=== PATIENT | male | born 1975 | race Caucasian/White ===

== ENCOUNTER → 2017-03-16 | Outpatient (CLI) | payer OTHER ==
[~2017-03-16] VITALS: Ht 185.4 cm; Wt 94.3 kg
[~2017-03-16] MED LIST: ALEVE220 MG PO; FLONASE 0.05%50 MCG NASAL; LOPERAMIDE 2 MG2 M1 PO; VITAMIN D1000 UNI1 PO; XYZAL5 MG PO
--- NOTE | ~2017-03-16 | HPC ---
[facility] [place] [address] PAIN MANAGEMENT CONSULTATION Name: NELSON CORDERO [id number] Admission: 03/16/17 Attend Phys: Keenan Carrasco DO Discharge: Date of : 79 Report #: [id number] THIS REPORT FOR: //name// CC: Keenan Giron MD DATE OF SERVICE: 03/16/2017 DATE OF SERVICE: 03/16/2017 CHIEF COMPLAINT: Axial back pain. HISTORY OF PRESENT ILLNESS: As you know, the patient is a 41-year-old male, who has reported longstanding history of axial back pain issues. The patient states his pain began in 2004. He denies injury or trauma that may have led to symptom development and progression. He has been evaluated at [facility]. He has undergone intra-articular facet injections which provided about 60% improvement in overall pain lasting for about a week. He was planning to return to undergo the next in a series of intra-articular facet injections, but was advised to transfer his care to [facility] where he is able to receive a discount on his treatment options. He referred himself to our clinic for evaluation. He states his pain today is steady and periodic, describes the pain as shooting, aching and stabbing, places current pain score 2-3/10, daily average at 6/10, worst the pain has been is 9/10. The patient states that activities and bending over exacerbates symptoms, lying down tends to improve pain. He has been referred to pain management for chronic axial back pain. PAST MEDICAL HISTORY: 1. Chronic low back pain. 2. Gastroesophageal reflux disease. 3. Hyperlipidemia. PAST SURGICAL HISTORY: 1. Rotator cuff repair on the right. 2. Rotator cuff repair, left. 3. Lipoma resection. SOCIAL HISTORY: The patient is a reformed smoker. He has 98-lmdu-byhb history of smoking. He denies IV or illicit drug use. Denies any chronic alcohol use. He is employed as a registered nurse. He is working, not receiving workmen's compensation nor is trying to obtain disability benefits. He is unaccompanied at today's visit. REVIEW OF SYSTEMS: Positive for chronic sinus with rhinitis, low back pain, gastroesophageal reflux disease, hyperlipidemia. All other review of systems [address] [address] PAIN MANAGEMENT CONSULTATION Name: NELSON CORDERO BUTLER [facility] [place] [id number] Admission: 03/16/17 Attend Phys: Keenan Carrasco DO Discharge: Date of : 79 Report #: [id number] negative per 12-point review of systems other than those listed in history of present illness. Pain impact score indicating mild interference of daily activities secondary to pain. ALLERGIES: No known drug allergies. CURRENT MEDICATIONS: Cholecalciferol 5000 units per day, naproxen 220 mg every 12 hours, Imodium 2 mg p.r.n., Xyzal 5 mg once a day, fluticasone 2 sprays each nostril per day. IMAGING: No imaging available. PHYSICAL EXAMINATION: VITAL SIGNS: Blood pressure 104/66, pulse 70, respiratory rate 16, unlabored. The patient is 98% on room air, height 6 feet 1 inch tall, weight 208 pounds, BMI calculated 27.4. GENERAL: Well-developed, well-nourished, well-hydrated 41-year-old male, appears stated age, placing current pain score around 2-3/10. HEENT: Normocephalic, atraumatic. Pupils equal, round, reactive to light. Extraocular muscles are intact. Sclerae nonicteric without injection. NEUROLOGIC: Cranial nerves 2-12 grossly intact. Speech fluent. The patient deemed a good historian. LUNGS: Clear, no wheeze, rhonchi or rales. CARDIOVASCULAR: Regular. No appreciable gallop or rub. ABDOMEN: Soft, nontender, nondistended, normoactive bowel sounds. EXTREMITIES: Show no clubbing, no cyanosis, no edema. MUSCULOSKELETAL: Lower extremity strength equal and symmetrical 5/5, intact to light touch from L1 through S2 dermatomes. Deep tendon reflexes are symmetrical at patella and Achilles. Ankle clonus negative. Babinski is negative. Lumbar provocation testing including extension, rotation, lateral flexion all intensify axial back pain. Deep palpation over the facet joints at L4-L5 and L5-S1 cause intensification of pain. ASSESSMENT: 1. Lumbosacral spondylosis without radiculopathy. 2. Chronic myofascial pain. 3. Chronic intractable pain. PLAN: 1. The patient has been referred to our service for continuation of treatment that was initiated through the services from pain management standpoint. The patient was undergoing intra-articular facet injections with service for axial back pain believed to be due to facet arthropathy. The patient did receive approximately 60% improvement in overall pain with the intra-articular [facility] [address] [place] [address] PAIN MANAGEMENT CONSULTATION Name: NELSON CORDERO Room #: REG CLI [facility]#: [id number] Admission: 03/16/17 Attend Phys: Keenan Carrasco DO Discharge: Date of : 79 Report #: [id number] facet injections provided at their facility. The fact that the patient received only transient improvement, would indicate that intra-articular facet injections will not be the appropriate long-term treatment option. We discussed with the patient the other treatment options are available for axial back pain believed to be generator from facet arthropathy. We discussed physical therapy, stretching exercises, core strengthening, the gold standard treatment for facet arthropathy pain in young males. We discussed initiation of a consistent nonsteroidal anti-inflammatory. The patient indicates he had been on Celebrex in the past 200 mg once a day and meloxicam 15 mg once a day. He noted good benefit, but it faded during the late afternoon hours. This could be altered easily for better improvement. We discussed medial branch nerve blocks, radiofrequency lesioning and potential surgical options. After reviewing risks and benefits of all proposed treatment options, the patient chose to begin with medial branch nerve blocks moving towards radiofrequency lesioning assuming he sees improvement with the blocks provided. The patient was advised risks and benefits of a lumbar medial branch nerve blocks. These risks include but are not necessarily limited to bleeding, bruising, infection, worsening pain, no relief of pain, also risk of temporary or permanent muscle weakness, temporary or permanent nerve damage, possible paralysis and . The patient states understood and wished to proceed. 2. No medication changes were made at today's visit, the patient to continue current medical therapy as previously prescribed. 3. The patient will return to our clinic in 1 week. At that time, review the efficacy of the lumbar medial branch nerve blocks providing today determine if next in the series of medial branch blocks would be warranted. If he shows good benefit with the initial injections, I would recommend moving towards the second in the series. If these again show improvement, then moving towards radiofrequency lesioning. 4. We wish to thank you for the opportunity to see this patient in consultation. We will keep you apprised of response to treatment as we address his ongoing pain. Again, we wish to thank you for the opportunity to participate in his care. PROCEDURE NOTE DESCRIPTION OF PROCEDURE: Bilateral L3, L4, L5 lumbar medial branch nerve blocks under fluoroscopic guidance. After obtaining written consent, the patient was taken back to fluoroscopy suite, placed in prone position on the fluoroscopy table with a pillow under abdomen to decrease lumbar lordosis. Skin overlying the lumbosacral area was then prepped and draped in aseptic fashion. The L4 transverse process corresponding to the L3 medial branch nerve and the L5 transverse process corresponding to the L4 medial branch nerve was identified both on the left and [place] [id number] PAIN MANAGEMENT CONSULTATION Name: NELSON CORDERO ROBERT Room #: REG SHANI Pan#: [id number] Admission: 03/16/17 Attend Phys: Keenan Carrasco DO Discharge: Date of : 79 Report #: [id number] right side under AP fluoroscopy. Skin and subcutaneous tissue overlying the target sites of injection were then anesthetized with 2 mL of 1% lidocaine. Next four #22 gauge 3-1/2 inch spinal needles with bent tips were advanced under fluoroscopic guidance to the superior, inferior and lateral to medial approach to the dorsal superior and medial aspect of the base of the transverse processes. The needles were then directed caudally to reach the target locations. Oblique view facilitated needle placement with properly positioned needles. At each site, the needles rested on periosteum. After negative aspiration for heme or cerebrospinal fluid, 0.5 mL of bupivacaine 0.5% was injected slowly to avoid forcing the solution away from the target sites. [place] were then removed. The L5 dorsal ramus block on both the left and right side was performed using a slightly oblique approach under fluoroscopic guidance, placing the needles within the groove between the sacral ala and the superior articular process of S1. Needle rested on periosteum. After negative aspiration for heme, 0.5 mL of bupivacaine 0.5% was injected slowly to avoid forcing the solution away from the target points. Needle were then removed. Sterile bandages placed over each injection site. The patient tolerated procedure well, carefully escorted to the recovery room in stable condition. No apparent complications. After meeting discharge criteria, the patient was discharged home. The patient placed VAS score 2-3/10 prior to procedure and 0/10 after procedure. <ELECTRONICALLY SIGNED> By: Keenan Carrasco DO 03/17/17 [id number] Keenan Carrasco DO /nt
[2017-03-16 10:19] VITALS: BP 104/66
== END | disposition home or self-care (01) ==
LOC: PAIN 08:38
DX: M47.817 Spondylosis without myelopathy or radiculopathy, lumbosacral region (principal); G89.29 Other chronic pain; M79.1 Myalgia; K21.9 Gastro-esophageal reflux disease without esophagitis; E78.5 Hyperlipidemia, unspecified; Z98.890 Other specified postprocedural states

== ENCOUNTER → 2017-03-30 | Outpatient (CLI) | payer OTHER ==
[~2017-03-30] VITALS: Ht 185.4 cm; Wt 94.3 kg
--- NOTE | ~2017-03-30 | HPC ---
[facility] [address] [place] [address] PAIN MANAGEMENT CONSULTATION Name: NELSON CORDERO Room #: REG [facility] [place].#: [id number] Admission: 03/30/17 Attend Phys: Keenan Carrasco DO Discharge: Date of : 79 Report #: [id number] THIS REPORT FOR: //name// CC: Keenan Giron MD DATE OF SERVICE: 03/30/2017 DATE OF SERVICE: 03/30/2017. REFERRING PHYSICIAN: Fadi iGron MD CHIEF COMPLAINT: Axial back pain. HISTORY OF PRESENT ILLNESS: As you know, the patient is a 41-year-old male reporting longstanding history of axial back pain issues. He states his pain began in 2004. He denies injury or trauma that may led this symptom development. He has been followed by the Pain Service undergoing intra-articular facet injections which provided about 60% improvement in overall pain lasting for about a week. At our first visit, we discussed the lack of long-term efficacy with these intra-articular facet injections and began the process of medial branch nerve blocks with plans to undergo radiofrequency lesioning. I did not feel this patient needed long-term opioid therapy. He has undergone physical therapy and reports he is continuing to perform his PT, but this has been less than effective at controlling his symptoms. He returns today in followup visit stating he received excellent benefit with the medial branch nerve blocks lasting for nearly 4 hours with 100% resolution. He returns today in followup visit requesting to discontinue the process of moving forward with radiofrequency ablation as he is "nervous about it." He wishes to trial an intraarticular facet injection in the bilateral L4-L5 and L5-S1 facets despite the fact that he received little or no benefit for long-term treatment in this injection series through . We have discussed the lack of long-term efficacy with the patient today, but he chose to discontinue our process of moving forward with possible radiofrequency lesioning and adjust back to intra-articular facet injections. ALLERGIES: No known drug allergies. CURRENT MEDICATIONS: Fluticasone, Xyzal, Imodium, naproxen, and cholecalciferol. SOCIAL HISTORY: The patient is a reformed smoker. He has a 68-cini-nmvd history of smoking. Denies IV or illicit drug use. Denies any chronic alcohol use. 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 [address] PAIN MANAGEMENT CONSULTATION Name: NELSON CORDERO ROBERT Room #: REG CLNataliya Pan#: [id number] Admission: 03/30/17 Attend Phys: Keenan Carrasco DO Discharge: Date of : 79 Report #: [id number] IMAGING STUDIES: No new imaging available. PHYSICAL EXAMINATION: VITAL SIGNS: Blood pressure 109/74, pulse 60, and respiratory rate 14, unlabored. The patient is 97% on room air, height 6 feet 1 inch tall, weight 208 pounds, BMI calculated 27.4. GENERAL: Well-developed, well-nourished, well-hydrated 41-year-old male appearing his stated age, placing current pain score at 2/10. HEENT: He is normocephalic, atraumatic. Pupils equal, round, and reactive to light. EXTREMITIES: No clubbing, no cyanosis, no edema. MUSCULOSKELETAL: Palpatory tenderness noted over the paraspinal musculature, lower lumbar spine, no spinous process tenderness. Lumbar provocation testing including extension, rotation, and lateral flexion all intensify axial back pain. ASSESSMENT: 1. Lumbosacral spondylosis without radiculopathy. 2. Mild facet arthropathy of the lumbar spine. 3. Myofascial pain. 4. Chronic intractable pain. PLAN: 1. The patient returns today in followup visit having noted 100% improvement in overall pain with the medial branch nerve blocks provided at last visit, this lasted for approximately 4 hours, typical timeframe for medial branch nerve blocks. We planned to have the patient return today to undergo medial branch nerve block #2 in preparation for moving forward with radiofrequency lesioning to obtain a prolonged analgesic benefit. The patient is requesting at this time that we discontinue the process of medial branch nerve blocks and moving towards radiofrequency lesioning as he is "nervous about the process." The patient wishes to return to intra-articular facet injections despite the fact that he received only transient improvement in symptoms. I have discussed this with the patient at length today. He states that he cannot go without the intra-articular facet injections. I was describing the concern I had with the lack of efficacy. Despite our discussion today, he chose to move forward with an intraarticular facet injection in the bilateral L4-L5 and L5-S1 joints. He was advised of the risks and benefits indicating today that the likelihood of long-term efficacy with this is little or none. Even though he is aware of this, he does wish to move forward with this type of treatment. 2. No medication changes were made at today's visit. The patient is to continue current medical therapy as previously prescribed. 3. The patient to return to our clinic on an as-needed basis for discussion of more definitive treatment options if this is not effective at providing long-term benefit. [facility] [address] [place] [address] PAIN MANAGEMENT CONSULTATION Name: NELSON CORDERO Room #: REG CLNataliya Pan#: [id number] Admission: 03/30/17 Attend Phys: Keenan Carrasco DO Discharge: Date of : 79 Report #: [id number] PROCEDURE NOTE PROCEDURE PERFORMED: Bilateral L4-L5, L5-S1 intra-articular facet injections under fluoroscopic guidance. This is the first procedure of the first series that the patient is undergoing. After obtaining written consent, the patient was taken back to the fluoroscopy suite and placed in a prone position with a pillow under the abdomen to decrease the lumbar lordosis and to facilitate needle entry into the facet joints. The skin overlying the lumbosacral area was prepped and draped in an aseptic fashion. AP and lateral fluoroscopic imaging was obtained. Optimal position of the fluoroscope occurred when the joint line was first visualized. The facet joints were identified radiographically directed adjacent to the superior articular process of the caudad vertebrae. The skin overlying the target site(s) of injection was anesthetized using 3 mL of 1% lidocaine. A 22-gauge 3-1/2 inch spinal needle with a bent tip was advanced towards the L4-L5, L5-S1 facet joint(s) on the right and left sides under fluoroscopic guidance. The firm posterior capsule had its characteristic feel and the needle was advanced a few additional millimeters beyond the joint capsule into the joint space, but not into the articular cartilage. After the joint space was entered and aspiration was negative for heme or CSF, 0.2 mL of Omnipaque was injected demonstrating a characteristic facet arthrogram. After negative aspiration for heme or CSF, 1.5 mL of a solution containing 1 mL 40 mg per mL, 40 mg total triamcinolone and 2 mL of bupivacaine 0.5% was slowly injected at each of 4 facets. The needles were then removed. There were no apparent complications. The patient tolerated the procedure well and was carefully escorted to the recovery room in stable condition. The VAS was 2/10 before the procedure and 0/10 ten minutes after the procedure. After meeting discharge criteria, the patient was discharged home. By: 0822 [id number] Keenan Carrasco DO /nt
[2017-03-30 11:16] VITALS: BP 109/74
== END | disposition home or self-care (01) ==
LOC: PAIN 03-23 11:13
DX: M47.817 Spondylosis without myelopathy or radiculopathy, lumbosacral region (principal); M79.1 Myalgia; G89.29 Other chronic pain; M12.88 Other specific arthropathies, not elsewhere classified, other specified site; Z87.891 Personal history of nicotine dependence

== ENCOUNTER → 2017-05-25 | Outpatient (CLI) | payer OTHER ==
[~2017-05-25] VITALS: Ht 185.4 cm; Wt 96.6 kg
[~2017-05-25] MED LIST changes: +ALLEGRA ALLERG180 MG PO
--- NOTE | ~2017-05-25 | HPC ---
[facility] [address] [place] [address] PAIN MANAGEMENT CONSULTATION Name: NELSON CORDERO Room #: REG CLNataliya Pan#: [id number] Admission: 05/25/17 Attend Phys: Keenan Carrasco DO Discharge: Date of : 79 Report #: [id number] THIS REPORT FOR: //name// CC: GRACIA Giron DATE OF SERVICE: 05/25/2017 CHIEF COMPLAINT: Axial back pain. HISTORY OF PRESENT ILLNESS: As you know, the patient is a 41-year-old male reporting longstanding history of axial back pain issues. He has changed his care from the pain service for he was undergoing intra-articular facet injections with about 60% improvement of overall pain lasting for about a week. He was referred to our clinic to discuss the continuation of these treatment options. We discussed this with the patient at her last visit that injections that provide only a week or 2 weeks of improvement in symptoms are not a very effective treatment option, especially for longstanding back pain issues. We discussed with the patient medial branch nerve blocks, radiofrequency lesioning as more definitive treatment option as the patient only has mild arthritic changes that should not be causing the symptomology that he is currently describing. The patient wished to consider the options. He did undergo bilateral L4-L5, L5-S1 intra-articular facet injections at last visit with only transient improvement. He returns today in followup visit reporting pain score 7/10, wishes to begin the medial branch nerve blocks and radiofrequency lesioning. ALLERGIES: No known drug allergies. CURRENT MEDICATIONS: Fluticasone, Xyzal, Imodium, naproxen and cholecalciferol. SOCIAL HISTORY: The patient is a reformed smoker, has a 63-kmqq-dtol history of smoking. Denies IV or illicit drug use. Denies any chronic alcohol use. He is employed, working, not receiving workmen's compensation, unaccompanied today. IMAGING: No new imaging available. PHYSICAL EXAMINATION: VITAL SIGNS: Blood pressure 110/60, pulse 67, respiratory rate 16 and unlabored, the patient is 99% on room air. Height 6 feet 1 inch tall, weight 213 pounds, BMI calculated at 28.1. GENERAL: Well-developed, well-nourished, well-hydrated 41-year-old male who appears his stated age. He is in no acute distress. Pain is rated at 7/10. HEENT: Normocephalic, atraumatic. Pupils equal, round, reactive to light. EXTREMITIES: Show no clubbing, no cyanosis, [place] [address] PAIN MANAGEMENT CONSULTATION Name: NELSON CORDERO [id number] Admission: 05/25/17 Attend Phys: Keenan Carrasco DO Discharge: Date of : 79 Report #: [id number] MUSCULOSKELETAL: Lumbar provocation testing including extension, rotation, lateral flexion intensify axial back pain; no radiation of symptoms. Seated straight leg raising negative. Supine straight leg raising negative. ASSESSMENT: 1. Lumbosacral spondylosis without radiculopathy. 2. Mild facet arthropathy of the lumbar spine, myofascial pain. 3. Chronic intractable pain. PLAN: 1. The patient returns today in followup visit where he wishes to discuss medial branch nerve blocks and radiofrequency lesioning. I have discussed this with the patient in the past and have spent time again discussing it today. I discussed that medial branch nerve blocks begin with blocks that last for transient amount of time. A second block will then be performed a week later, again lasting for transient amount of time. If both are successful at alleviating symptoms, we would move forward with radiofrequency lesioning beginning on the right side or left side and 2 weeks later completing the radiofrequency lesioning on the opposite side. The patient requested sedation during these procedures. Unfortunately, this cannot be provided and it will not be provided by [facility]. The patient needs to be awake, alert during the procedure as this is a procedure that we are ablating nerves and the patient needs to be able to answer for any concerns or pain issues that may be generated during the procedure, so that we can adjust our needles appropriately and find the medial branch nerve blocks more effectively, as feedback from the patient is required for this procedure. The patient states he understands. He does wish to undergo the medial branch nerve blocks today in hopes of improving pain. 2. The patient was provided no changes in medical therapy. He was given an appointment back with us in 1 week to discuss the efficacy of today's medial branch nerve blocks and discuss if the second in series would be the recommended. PROCEDURE NOTE DESCRIPTION OF PROCEDURE: Bilateral L3, L4, L5 medial branch nerve blocks under fluoroscopy. This is the first of 2 diagnostic medial branch blocks on the bilateral side that the patient is undergoing. After obtaining written consent, the patient was taken back to the fluoroscopy suite and placed in a prone position on the fluoroscopy table with a pillow under the abdomen to decrease the lumbar lordosis. The skin overlying the lumbosacral area was prepped and draped in an aseptic fashion. The L4 transverse process corresponding to the L3 medial branch nerve, L5 transverse process corresponding to the L4 medial branch nerve on the right and left sides [address] [address] PAIN MANAGEMENT CONSULTATION Name: NELSON CORDERO [facility] [id number] Admission: 05/25/17 Attend Phys: Keenan Carrasco DO Discharge: Date of : 79 Report #: [id number] were visualized under AP fluoroscopy. The skin and subcutaneous tissue overlying the target sites of injection were anesthetized using 2 mL of 1% lidocaine. A 22-gauge, 3-1/2-inch spinal needle with a bent tip was advanced under fluoroscopic guidance using a superior to inferior and lateral to medial approach to the dorsal, superior and medial aspect of the base of the transverse processes. The needles were then directed ventral, medial and caudad to reach the target locations. An oblique view facilitated needle placement with properly positioned needless in the middle of the "eye" of the Bennett dog for the medial branch blocks. At each site the needles rested on periosteum. After negative aspiration for heme or CSF, 0.2 mL of Omnipaque dye was injected at each site under live fluoroscopy, demonstrating absence of vascular uptake. After negative aspiration for heme or CSF, 0.5 mL of bupivacaine 0.5% was slowly injected at each site to avoid forcing the solution away from the target points. The needles were then removed. The L5 dorsal ramus block on the right and left side was performed using a slightly oblique approach under fluoroscopic guidance, placing the needle within the groove between the sacral site and the superior articular process of S1. The needle rested on periosteum. After negative aspiration for heme or CSF, 0.2 mL of Omnipaque dye was injected at under live fluoroscopy, demonstrating absence of vascular uptake. After negative aspiration for heme or CSF, 0.5 mL of bupivacaine 0.5% was slowly injected to avoid forcing the solution away from the target point. The needle was then removed. Sterile bandages were placed over the injection site. There were no apparent complications. The patient tolerated the procedure well and was carefully escorted to the recovery room in stable condition. The VAS was 7 before the procedure and 2 10 minutes after the procedure. After meeting discharge criteria, the patient was discharged home. By: 0825 [id number] Keenan Carrasco DO /nt
[2017-05-25 12:50] VITALS: BP 110/60
== END | disposition home or self-care (01) ==
LOC: PAIN 06:35
DX: M47.817 Spondylosis without myelopathy or radiculopathy, lumbosacral region (principal); M12.88 Other specific arthropathies, not elsewhere classified, other specified site; M79.1 Myalgia; G89.29 Other chronic pain; Z87.891 Personal history of nicotine dependence; Z98.890 Other specified postprocedural states

== ENCOUNTER → 2017-07-20 | Outpatient (CLI) | payer OTHER ==
[~2017-07-20] VITALS: Ht 182.9 cm; Wt 97.7 kg
[~2017-07-20] MED LIST changes: +CYCLOBENZAPRINE10 MG PO; +DICLOFENAC SODI75 MG PO; +NABUMETONE 500500 M1 PO; +NORFLEX100 MG PO; +XANAX1 MG PO
--- NOTE | ~2017-07-20 | HPC ---
[facility] [address] [place] [address] PAIN MANAGEMENT CONSULTATION Name: NELSON CORDERO [facility]: [id number] Admission: 07/20/17 Attend Phys: Keenan Carrasco DO Discharge: Date of : 79 Report #: [id number] THIS REPORT FOR: //name// CC: Keenan Giron MD DATE OF SERVICE: 07/20/2017 REFERRING PHYSICIAN: Fadi Giron MD CHIEF COMPLAINT: Axial back pain. HISTORY OF PRESENT ILLNESS: As you know, the patient is a 42-year-old male with longstanding history of axial back pain. He has undergone multiple injections, all of which have provided only transient improvement in symptoms. He was referred to our clinic by his primary care physician for evaluation and noted to have some axial back pain issues. He underwent medial branch nerve blocks, which provided no improvement in symptoms. We did not progress towards radiofrequency as it was not indicated in this case. We started the patient on conservative treatment with physical therapy and now have had the patient on nabumetone and cyclobenzaprine for the residual symptoms. He returns today stating these medications are not working beneficially and wishes changes in therapy. He is denying any injury or trauma to the low back that may have caused symptoms and actual imaging shows very little change in pathology, in fact, his imaging actually shows standard findings for a 42-year-old male. He returns to discuss options for treatment. ALLERGIES: No known drug allergies. CURRENT MEDICATIONS: Fluticasone, Xyzal, Imodium, naproxen, cholecalciferol, nabumetone, cyclobenzaprine. SOCIAL HISTORY: The patient is a reformed smoker. He has a 49-fuqi-wzia history of smoking. Denies IV or illicit drug use. Denies any chronic alcohol use. Unaccompanied today. IMAGING: No new imaging available. PHYSICAL EXAMINATION: VITAL SIGNS: Blood pressure 116/78, pulse 91, respiratory rate 16, unlabored. The patient is 97% on room air, height 6 feet tall, weight 215.4 pounds, BMI calculated 29.2. GENERAL: Well-developed, well-nourished, well-hydrated 42-year-old male, appearing stated age, placing current pain score at 2/10. HEENT: Normocephalic, atraumatic. Pupils equal, round, reactive to light. [facility] [address] [place] [address] PAIN MANAGEMENT CONSULTATION Name: NELSON CORDERO Room #: REG CLI [facility]#: [id number] Admission: 07/20/17 Attend Phys: Keenan Carrasco DO Discharge: Date of : 79 Report #: [id number] Extraocular muscles are intact. Speech remains fluent. EXTREMITIES: Show no clubbing, no cyanosis, no edema. MUSCULOSKELETAL: Seated straight leg raising negative. Supine straight leg raising negative. JOSE test is negative. Modified Gaenslen's positive for only some minor axial back pain, no radiation of symptoms. Muscle bulk and tone equal and symmetrical in lower extremities. ASSESSMENT: 1. Mild lumbosacral spondylosis without radicular symptoms. 2. Mild facet arthropathy of the lumbar spine. 3. Myofascial pain. 4. Chronic intractable pain. PLAN: 1. The patient returns today in followup visit where we once again discussed the lack of any major pathology in the lumbar region. Difficult for us to determine the source of the patient's symptoms as his findings show only mild facet arthropathy, which is typical finding for a 42-year-old male. I believe there is some deconditioning that may be involved in the patient's axial back pain issues and strengthening of the core muscles would be warranted in this patient's case. I have discussed this with the patient today. We have also discussed the possibility of rotating medications to try to provide some analgesic benefit, though again the findings on his image and physical exam would indicate typical findings in a 42-year-old male. We will make some adjustments in medication today in hopes of providing the patient with some analgesia. 2. The patient was provided prescription of Norflex 100 mg dose 1 tab p.o. t.i.d., #90, 2 refills, 3 months' worth of medication. The patient was advised to discontinue all other muscle relaxants in preference for this medication. 3. The patient was provided prescription of diclofenac 75 mg dose 1 tab p.o. b.i.d. This would take place of all the other nonsteroidal anti-inflammatories. He is to take no other NSAIDs with this therapy. He is to watch for dyspepsia, worsening blood pressure, lower extremity edema with use of this medication. If he notes any side effects, contact our clinic. 4. We will see the patient back in followup visit on an as needed basis. These are medications he can receive from his PCP, Dr. Giron, who can continue to utilize these therapies if needed. <ELECTRONICALLY SIGNED> By: Keenan Carrasco DO 07/28/17 1219 0735 0833 Keenan Carrasco DO /nt
[2017-07-20 13:40] VITALS: BP 116/78
== END ==
LOC: PAIN 06:34
DX: M47.897 Other spondylosis, lumbosacral region (principal); M79.1 Myalgia; G89.4 Chronic pain syndrome

== ENCOUNTER 2018-06-28 22:48 | Emergency (ER) | payer OTHER ==
[~2018-06-28] VITALS: Ht 185.4 cm; Wt 93.0 kg
--- NOTE | ~2018-06-28 | EKG ---
[facility] [address] [place] [address] ELECTROCARDIOGRAM REPORT Name: NELSON CORDERO [facility] [id number] Admission: 06/28/18 Attend Phys: Discharge: 06/29/18 Date of : 79 Report #: [id number] THIS REPORT FOR: //name// [facility] ED Test Date: 2018-06-28 Test Time: 23:31:42 Pat Name: NELSON CORDERO Department: Room: Gender: Director [employer]: ut : 1975 Requested By: Judie Kauffman Order Number: [id number] MD: Víctor Roe Measurements Intervals [place] Rate: 104 P: 46 GA: 159 QRS: 28 QRSD: 83 T: 12 QT: 305 QTc: 402 Interpretive Statements Sinus tachycardia ST elev, probable normal early repol pattern Compared to ECG 07/21/1994 07:21:00 Heart rate has increased Electronically Signed On 06-29-2018 8:47:50 [employer] CLEAN[employer] by Víctor Roe [email or web address] <ELECTRONICALLY SIGNED> By: Víctor Roe MD, [facility] 06/29/18 0847 [id number] [id number] Víctor Roe MD, FACC /EPI
[2018-06-28] MEDS ORDERED: ZANTAC 150MG T150 MG (23:03)
[2018-06-28] MEDS ORDERED: CLARITIN-D 241 EAC1 PO (23:04)
[2018-06-28 23:29] LABS: ABSOLUTE NEUTROPHILS 7.3 thou/uL (1.4-8.2); BASOPHILS 0.2 % (0.0-2.0); EOSINOPHILS 1.4 % (0.0-3.0); HEMATOCRIT 44.5 % (42.0-52.0); HEMOGLOBIN 15.4 gm/dL (14.0-18.0); LYMPHOCYTES 5.1 % (24.0-44.0); MCH 29.8 pg (26.0-34.0); MCHC 34.5 g/dL (28.0-37.0); MCV 86.3 fL (80.0-100.0); MONOCYTES 2.5 % (1.0-8.0); PLATELET COUNT 237 thou/uL (150-400); POLYS 90.8 % (36.0-66.0); RBC 5.16 mil/uL (4.50-6.00); RDW 12.4 % (10.5-14.5)
[2018-06-28 23:37] LABS: CALCIUM 8.5 mg/dL (8.5-10.1); CREATININE 1.5 mg/dL (0.7-1.3); POTASSIUM 3.6 mmol/L (3.5-5.1)
[2018-06-28 23:43] LABS: ALBUMIN 3.9 g/dL (3.4-5.0); TOTAL BILIRUBIN 0.6 mg/dL (<0.1-1.0); TOTAL PROTEIN 6.7 g/dL (6.4-8.2)
[2018-06-28 23:57] LABS: URINE BILIRUBIN NEGATIVE (Negative); URINE BLOOD NEGATIVE (Negative); URINE CLARITY CLEAR; URINE COLOR YELLOW; URINE GLUCOSE-RANDOM* NEGATIVE (Negative); URINE KETONES NEGATIVE (Negative); URINE LEUKOCYTES NEGATIVE (Negative); URINE NITRITE NEGATIVE (Negative); URINE PROTEIN (DIPSTICK) NEGATIVE (Negative); URINE SPECIFIC GRAVITY 1.015 (1.005-1.035); URINE UROBILINOGEN 0.2 E.U./dl (0.2-1.0)
[2018-06-29] MEDS ORDERED: ONDANSETRON HCL4 M2 PO (01:37)
[2018-06-29 01:48] VITALS: BP 133/66
== END 2018-06-29 01:49 | disposition home or self-care (01) ==
LOC: ER 22:48
PROVIDERS: Physician Assistant
DX: E86.0 Dehydration (principal)

== ENCOUNTER → 2019-10-17 | Outpatient (CLI) | payer OTHER ==
[~2019-10-17] MED LIST changes: +CLARITIN-D 241 EAC1 PO; +ONDANSETRON HCL4 M2 PO; +ZANTAC 150MG T150 MG
== END ==
LOC: CAT 09:58
DX: Z13.6 Encounter for screening for cardiovascular disorders (principal); E78.00 Pure hypercholesterolemia, unspecified; I25.10 Atherosclerotic heart disease of native coronary artery without angina pectoris

== ENCOUNTER 2020-05-25 14:04 | Emergency (ER) | payer OTHER ==
[~2020-05-25] VITALS: Ht 182.9 cm; Wt 97.1 kg
[2020-05-25 14:58] LABS: ABSOLUTE NEUTROPHILS 3.2 thou/uL (1.4-8.2); BASOPHILS 0.4 % (0.0-2.0); EOSINOPHILS 1.4 % (0.0-3.0); HEMATOCRIT 44.1 % (42.0-52.0); HEMOGLOBIN 15.3 gm/dL (14.0-18.0); LYMPHOCYTES 25.1 % (24.0-44.0); MCH 30.4 pg (26.0-34.0); MCHC 34.7 g/dL (28.0-37.0); MCV 87.4 fL (80.0-100.0); MONOCYTES 6.7 % (1.0-8.0); PLATELET COUNT 289 thou/uL (150-400); POLYS 66.4 % (36.0-66.0); RBC 5.04 mil/uL (4.50-6.00); RDW 12.6 % (10.5-14.5); WBC 4.7 thou/uL (4.0-11.0)
[2020-05-25 15:06] LABS: ANION GAP 6 mmol/L (7-16); BUN 17 mg/dL (7-18); CALCIUM 8.7 mg/dL (8.5-10.1); CHLORIDE 104 mmol/L (98-107); CO2 30 mmol/L (21-32); CREATININE 1.6 mg/dL (0.7-1.3); GLUCOSE 89 mg/dL (74-106); POTASSIUM 4.1 mmol/L (3.5-5.1); SODIUM 140 mmol/L (136-145)
[2020-05-25 15:14] LABS: TROPONIN-I <0.06 ng/mL (<0.06)
[2020-05-25 15:38] VITALS: BP 135/90
--- NOTE | 2020-05-26 11:15 | EKG ---
[facility] [place] [address] ELECTROCARDIOGRAM REPORT Name: NELSON CORDERO Room #: [facility]P [facility] [id number] Admission: 05/25/20 Attend Phys: Discharge: 05/25/20 Date of : 79 Report #: [id number] THIS REPORT FOR: cc: Jayjay De La Cruz MD, Neal A. MD Lundgren,Víctor Bansal MD LOCATED WITHIN [facility] ~ THIS REPORT FOR: //name// [facility] ED Test Date: 2020-05-25 Test Time: 14:41:03 Pat Name: NELSON CORDERO Department: Room: Gender: Spanish Interpreter/Translator: [facility] : 1975 Requested By: Ron Manley Order Number: [id number] MD: Víctor Roe Measurements Intervals [place] Rate: 64 P: 13 WY: 167 QRS: 36 QRSD: 90 T: 3 QT: 371 QTc: 383 Interpretive Statements Sinus rhythm ST elev, probable normal early repol pattern Baseline wander in lead(s) V3,V4,V5,V6 Compared to ECG 06/28/2018 23:31:42 Sinus tachycardia no longer present Electronically Signed On 05-26-2020 11:15:53 CDT by Víctor Roe [email or web address] <ELECTRONICALLY SIGNED> By: Víctor Roe MD, FACC 05/26/20 1115 1441 1441 Víctor Roe MD, FACC /EPI
== END 2020-05-25 15:38 | disposition home or self-care (01) ==
LOC: ER 14:04
PROVIDERS: Nurse Practitioner
DX: R53.83 Other fatigue (principal); J34.89 Other specified disorders of nose and nasal sinuses; Z20.828 Contact with and (suspected) exposure to other viral communicable diseases; Z98.890 Other specified postprocedural states; Z79.899 Other long term (current) drug therapy; Z87.891 Personal history of nicotine dependence

== ENCOUNTER → 2020-08-16 | Outpatient (CLI) | payer OTHER | LOC: LAB 11:30 | PROVIDERS: ATTEND Emergency Medicine | DX: U07.1 COVID-19 (principal) ==

== ENCOUNTER → 2020-12-24 | Outpatient (CLI) | payer OTHER ==
[2020-12-24 11:05] LABS: ABSOLUTE NEUTROPHILS 2.4 thou/uL (1.4-8.2); BASOPHILS 0.7 % (0.0-2.0); EOSINOPHILS 2.3 % (0.0-3.0); HEMOGLOBIN 15.7 gm/dL (14.0-18.0); MCH 29.4 pg (26.0-34.0); MCHC 33.5 g/dL (28.0-37.0); MONOCYTES 7.6 % (1.0-8.0); PLATELET COUNT 275 thou/uL (150-400); POLYS 60.4 % (36.0-66.0); RBC 5.35 mil/uL (4.50-6.00); RDW 12.9 % (10.5-14.5)
[2020-12-24 11:13] LABS: ALBUMIN 3.8 g/dL (3.4-5.0); ANION GAP 5 mmol/L (7-16); BUN 17 mg/dL (7-18); CALCIUM 8.9 mg/dL (8.5-10.1); CHLORIDE 102 mmol/L (98-107); CHOLESTEROL 216 mg/dL (<200); CO2 31 mmol/L (21-32); CREATININE 1.3 mg/dL (0.7-1.3); GLUCOSE 92 mg/dL (74-106); HDL CHOLESTEROL 33 mg/dL (>40); LDL CHOLESTEROL 150 mg/dL (<100); POTASSIUM 4.5 mmol/L (3.5-5.1); SGOT 77 U/L (15-37); SGPT 56 U/L (30-65); SODIUM 138 mmol/L (136-145); TC:HDL 6.5 Ratio (Not establshd); TOTAL BILIRUBIN 0.6 mg/dL (0.2-1.0); TOTAL PROTEIN 6.8 g/dL (6.4-8.2); TRIGLYCERIDE 166 mg/dL (<150); VLDL 33 mg/dL (<40)
== END ==
LOC: LAB 10:13
PROVIDERS: ATTEND Family Medicine
DX: Z00.00 Encounter for general adult medical examination without abnormal findings (principal)